=== PATIENT | female | born 1960 | race Caucasian/White ===

== ENCOUNTER → 2016-09-18 | Outpatient (REF) | payer BC ==
[2016-09-18 19:51] LABS: ALBUMIN 3.6 GM/DL (3.2-5.2); ALBUMIN/GLOBULIN RATIO 1.09 (1.00-1.93); ALKALINE PHOSPHATASE 101 U/L (45-117); ALT/SGPT 26 U/L (12-78); ANION GAP 8 MEQ/L (8-16); AST/SGOT 21 U/L (15-37); BILIRUBIN,TOTAL 0.3 MG/DL (0.2-1.0); BLOOD UREA NITROGEN 20 MG/DL (7-18); CARBON DIOXIDE LEVEL 26 MEQ/L (21-32); CHLORIDE LEVEL 107 MEQ/L (98-107); CREATININE FOR GFR 0.66 MG/DL (0.55-1.02); FREE T4 1.16 NG/DL (0.76-1.46); GLOMERULAR FILTRATION RATE > 60.0 (>51); GLUCOSE, FASTING 78 MG/DL (70-105); POTASSIUM SERUM 4.4 MEQ/L (3.5-5.1); SODIUM LEVEL 141 MEQ/L (136-145); TOTAL PROTEIN 6.9 GM/DL (6.4-8.2)
[2016-09-18 20:01] LABS: PROGESTERONE < 0.2 NG/ML
[2016-09-18 20:03] LABS: ESTRADIOL < 19.0 PG/ML; FOLLICLE STIMULATING HORMONE 70.9 mIU/mL
[2016-09-21 14:14] LABS: ESTRONE SERUM 35 pg/mL (.); SEX HORMONE BINDING GLOBULIN 32.3 nmol/L (17.3-125.0)
== END ==
LOC: M LAB REF 17:03
PROVIDERS: ATTEND Obstetrics & Gynecology
DX: N95.9 Unspecified menopausal and perimenopausal disorder (principal)

== ENCOUNTER → 2016-10-31 | Outpatient (REF) | payer BC ==
[2016-10-31 16:00] LABS: ESTRADIOL 92.4 PG/ML; LUTEINIZING HORMONE 26.3 mIU/mL; PROGESTERONE < 0.2 NG/ML
== END ==
LOC: M LAB REF 10:29
PROVIDERS: ATTEND Obstetrics & Gynecology
DX: N95.9 Unspecified menopausal and perimenopausal disorder (principal); E34.9 Endocrine disorder, unspecified; R68.82 Decreased libido

== ENCOUNTER → 2016-11-10 | Outpatient (CLI) | payer BC ==
[2016-11-10 20:15] LABS: BLOOD UREA NITROGEN 14 MG/DL (7-18); CREATININE FOR GFR 0.68 MG/DL (0.55-1.02); GLOMERULAR FILTRATION RATE > 60.0 (>51)
== END ==
LOC: M WUC 15:33
PROVIDERS: ATTEND Ophthalmology
DX: Z01.89 Encounter for other specified special examinations (principal)

== ENCOUNTER → 2017-05-18 | Outpatient (CLI) | payer BC ==
[2017-05-18 17:50] LABS: THYROID STIMULATING HORMONE 0.715 uIU/ML (0.358-3.740)
[2017-05-18 17:50] LABS: FREE T4 1.13 NG/DL (0.76-1.46)
== END ==
LOC: M WUC 11:30
DX: R94.6 Abnormal results of thyroid function studies (principal)
CPT/HCPCS: 84443

== ENCOUNTER → 2017-08-29 | Outpatient (REF) | payer BC | LOC: M LAB REF 16:31 | DX: N39.0 Urinary tract infection, site not specified (principal) | CPT/HCPCS: 87086 ==

== ENCOUNTER → 2017-10-25 | Outpatient (REF) | payer BC | LOC: M LAB REF 14:38 | DX: R30.0 Dysuria (principal) | CPT/HCPCS: 87186 ==

== ENCOUNTER → 2018-01-16 | Outpatient (CLI) | payer BC ==
[2018-01-16 12:44] LABS: BASO # 0.1 10^3/uL (0.0-0.2); BASO % 1.2 % (0.0-1.0); EOS # 0.3 10^3/uL (0.0-0.50); EOS % 3.1 % (0.0-3.0); HEMATOCRIT 43.6 % (36.0-47.0); HEMOGLOBIN 14.1 g/dl (12.0-15.5); IMMATURE GRANULOCYTE % 0.6 % (0-3.0); LYMPH # 2.6 10^3/uL (1.5-4.5); LYMPH % 30.6 % (24.0-44.0); MEAN CORPUSCULAR HEMOGLOBIN 30.2 pg (27.0-33.0); MEAN CORPUSCULAR HGB CONC 32.3 g/dl (32.0-36.5); MEAN CORPUSCULAR VOLUME 93.4 fl (80.0-96.0); MONO # 0.6 10^3/uL (0.0-0.8); MONO % 7.3 % (0.0-5.0); NEUTROPHILS # 4.8 10^3/uL (1.8-7.7); NEUTROPHILS % 57.2 % (36.0-66.0); PLATELET COUNT, AUTOMATED 282 10^3/uL (150-450); RED BLOOD COUNT 4.67 10^6/uL (4.00-5.40); RED CELL DISTRIBUTION WIDTH 13.1 % (11.5-14.5); WHITE BLOOD COUNT 8.3 10^3/uL (4.0-10.0)
[2018-01-16 13:38] LABS: ALBUMIN 3.4 GM/DL (3.2-5.2); ALBUMIN/GLOBULIN RATIO 0.97 (1.00-1.93); ALKALINE PHOSPHATASE 107 U/L (45-117); ALT/SGPT 19 U/L (12-78); ANION GAP 8 MEQ/L (8-16); AST/SGOT 16 U/L (7-37); BILIRUBIN,TOTAL 0.6 MG/DL (0.2-1.0); BLOOD UREA NITROGEN 13 MG/DL (7-18); CALCIUM LEVEL 8.8 MG/DL (8.5-10.1); CARBON DIOXIDE LEVEL 26 MEQ/L (21-32); CHLORIDE LEVEL 105 MEQ/L (98-107); CHOLESTEROL LEVEL 176 MG/DL (<200); CHOLESTEROL RISK RATIO 2.227 (<5); CREATININE FOR GFR 0.62 MG/DL (0.55-1.30); FREE T4 1.16 NG/DL (0.76-1.46); GLOMERULAR FILTRATION RATE > 60.0 (>51); GLUCOSE, FASTING 75 MG/DL (70-100); HDL CHOLESTEROL 79 MG/DL (>40); LDL CHOLESTEROL 81 MG/DL (<100); NON-HDL-C 97 MG/DL; POTASSIUM SERUM 4.4 MEQ/L (3.5-5.1); SODIUM LEVEL 139 MEQ/L (136-145); TOTAL PROTEIN 6.9 GM/DL (6.4-8.2); TRIGLYCERIDES LEVEL 79 MG/DL (<150)
== END ==
LOC: M WUC 09:15
DX: Z00.00 Encounter for general adult medical examination without abnormal findings (principal); E89.0 Postprocedural hypothyroidism
CPT/HCPCS: 84443

== ENCOUNTER → 2018-04-16 | Outpatient (CLI) | payer BC ==
[2018-04-16 13:09] LABS: FREE T4 1.03 NG/DL (0.76-1.46); THYROID STIMULATING HORMONE 2.65 uIU/ML (0.358-3.740)
== END ==
LOC: M WUC 09:52
PROVIDERS: ATTEND Family Medicine
DX: R94.6 Abnormal results of thyroid function studies (principal)

== ENCOUNTER → 2018-10-09 | Outpatient (CLI) | payer BC ==
[2018-10-09 20:49] LABS: THYROID STIMULATING HORMONE 0.923 uIU/ML (0.358-3.740); THYROXINE (T4) 8.1 UG/DL (4.5-12.0)
[2018-10-11 10:07] LABS: THRYOGLOBULIN ANTIBODIES (ATA) < 1.0 IU/mL (0.0-0.9); THYROGLOBULIN QUANTITATIVE 0.4 ng/mL (1.5-38.5)
== END ==
LOC: M WUC 15:56
PROVIDERS: ATTEND Ophthalmology
DX: E05.00 Thyrotoxicosis with diffuse goiter without thyrotoxic crisis or storm (principal)

== ENCOUNTER → 2018-11-18 | Outpatient (REF) | payer BC ==
[2018-11-18 21:28] LABS: AMORPHOUS SEDIMENT SMALL (NEGATIVE); APPEARANCE, URINE CLOUDY (CLEAR); BACTERIA, URINE AUTO 1+ (NEGATIVE); BILIRUBIN, URINE AUTO NEGATIVE (NEGATIVE); BLOOD, URINE BLOOD 2+ (NEGATIVE); COLOR, URINE YELLOW (YELLOW); GLUCOSE, URINE (UA) AUTO NEGATIVE (NEGATIVE); KETONE, URINE AUTO NEGATIVE (NEGATIVE); LEUKOCYTE ESTERASE, URINE AUTO 1+ (NEGATIVE); MUCUS, URINE SMALL (NEGATIVE); NITRITE, URINE AUTO NEGATIVE (NEGATIVE); PROTEIN, URINE AUTO NEGATIVE (NEGATIVE); RBC, URINE AUTO 9 /HPF (0-3); SPECIFIC GRAVITY URINE AUTO 1.017 (1.002-1.035); SQUAMOUS EPITHELIAL CELL UR AU 4 /HPF (0-6); UROBILINOGEN, URINE AUTO 0.2 mg/dL (0.0-2.0); WBC, URINE AUTO 72 /HPF (0-3)
== END ==
LOC: M LAB REF 13:26
PROVIDERS: ATTEND Physician Assistant Medical
DX: N39.0 Urinary tract infection, site not specified (principal)

== ENCOUNTER → 2019-02-04 | Outpatient (REF) | payer BC ==
[2019-02-04 15:48] LABS: BASO # 0.1 10^3/uL (0.0-0.2); BASO % 0.5 % (0.0-1.0); EOS # 0.1 10^3/uL (0.0-0.5); EOS % 0.7 % (0.0-3.0); HEMATOCRIT 45.5 % (36.0-47.0); HEMOGLOBIN 14.4 g/dl (12.0-15.5); LYMPH # 2.2 10^3/uL (1.5-5.0); LYMPH % 15.2 % (24.0-44.0); MEAN CORPUSCULAR HEMOGLOBIN 30.4 pg (27.0-33.0); MEAN CORPUSCULAR HGB CONC 31.6 g/dl (32.0-36.5); MONO # 0.6 10^3/uL (0.0-0.8); MONO % 3.9 % (0.0-5.0); NEUTROPHILS # 11.6 10^3/uL (1.5-8.5); NEUTROPHILS % 78.8 % (36.0-66.0); PLATELET COUNT, AUTOMATED 333 10^3/uL (150-450); RED BLOOD COUNT 4.74 10^6/uL (4.00-5.40); WHITE BLOOD COUNT 14.8 10^3/uL (4.0-10.0)
[2019-02-04 16:02] LABS: ALBUMIN 3.5 GM/DL (3.2-5.2); ALT/SGPT 23 U/L (12-78); BILIRUBIN,TOTAL 0.4 MG/DL (0.2-1.0); BLOOD UREA NITROGEN 12 MG/DL (7-18); CALCIUM LEVEL 9.2 MG/DL (8.5-10.1); CARBON DIOXIDE LEVEL 30 MEQ/L (21-32); CHLORIDE LEVEL 104 MEQ/L (98-107); CHOLESTEROL LEVEL 193 MG/DL (<200); CHOLESTEROL RISK RATIO 1.855 (<5); CREATININE FOR GFR 0.87 MG/DL (0.55-1.30); FREE T4 1.06 NG/DL (0.76-1.46); GLOMERULAR FILTRATION RATE > 60.0 (>51); GLUCOSE, FASTING 76 MG/DL (70-100); HDL CHOLESTEROL 104 MG/DL (>40); LDL CHOLESTEROL 61 MG/DL (<100); NON-HDL-C 89 MG/DL; POTASSIUM SERUM 3.6 MEQ/L (3.5-5.1); SODIUM LEVEL 140 MEQ/L (136-145); TOTAL PROTEIN 6.8 GM/DL (6.4-8.2); TRIGLYCERIDES LEVEL 142 MG/DL (<150)
== END ==
LOC: M LABDRAW1 11:14
PROVIDERS: ATTEND Family Medicine
DX: Z00.00 Encounter for general adult medical examination without abnormal findings (principal); E89.0 Postprocedural hypothyroidism

== ENCOUNTER → 2019-03-12 | Outpatient (REF) | payer BC | LOC: M LAB REF 12:27 | PROVIDERS: ATTEND Physician Assistant | DX: R30.0 Dysuria (principal) ==

== ENCOUNTER 2019-08-27 07:53 | Outpatient (CLI) | payer BC ==
[~2019-08-27] VITALS: Ht 160 cm; Wt 75.0 kg
[2019-08-27 08:05] VITALS: BP 160/91
[2019-08-27] MEDS ORDERED: methylPREDNISolone 250 MG in D5W 100 ML IV PRN (08:15)
[2019-08-27] MEDS ORDERED: LEVO112T2 PO (08:20)
[2019-08-27] MEDS ORDERED: PROG1CAP8 PO (08:21)
[2019-08-27] MEDS ORDERED: TEPROTUMUMAB TRBW IV ONE (08:30)
[2019-08-27] MEDS ORDERED: NS IV ONE (08:30)
[2019-08-27 09:30] VITALS: BP 128/77
[2019-08-27 10:00] VITALS: BP 129/74
[2019-08-27 11:00] VITALS: BP 131/73
[2019-08-27 11:25] VITALS: BP 144/82
[2019-08-27 12:00] VITALS: BP 139/83
== END 2019-08-27 12:00 | disposition home or self-care (01) ==
LOC: M INFU 07:53
PROVIDERS: ATTEND Ophthalmology
DX: E05.00 Thyrotoxicosis with diffuse goiter without thyrotoxic crisis or storm (principal); Z88.8 Allergy status to other drugs, medicaments and biological substances

== ENCOUNTER 2019-09-17 07:48 | Outpatient (CLI) | payer BC ==
[~2019-09-17] VITALS: Ht 160 cm; Wt 74.5 kg
[~2019-09-17 07:48] MED LIST: LEVO112T2 PO; PROG1CAP8 PO
[2019-09-17 08:00] VITALS: BP 142/84
[2019-09-17] MEDS ORDERED: TEPROTUMUMAB TRBW IV ONE (08:15)
[2019-09-17] MEDS ORDERED: NS IV ONE (08:15)
[2019-09-17 10:16] VITALS: BP 140/80
== END 2019-09-17 10:15 | disposition home or self-care (01) ==
LOC: M INFU 07:48
PROVIDERS: ATTEND Ophthalmology
DX: E05.00 Thyrotoxicosis with diffuse goiter without thyrotoxic crisis or storm (principal)

== ENCOUNTER → 2019-10-06 | Outpatient (REF) | payer BC | LOC: M LAB REF 15:35 | PROVIDERS: ATTEND Physician Assistant Medical | DX: N39.0 Urinary tract infection, site not specified (principal) ==

== ENCOUNTER 2019-10-08 08:30 | Outpatient (CLI) | payer BC | END 2019-10-08 11:10 | disposition home or self-care (01) | LOC: M INFU 08:30 | PROVIDERS: ATTEND Ophthalmology | DX: E05.00 Thyrotoxicosis with diffuse goiter without thyrotoxic crisis or storm (principal) ==

== ENCOUNTER 2019-10-29 07:52 | Outpatient (CLI) | payer BC ==
[~2019-10-29] VITALS: Ht 160 cm; Wt 70.0 kg
[2019-10-29] MEDS ORDERED: NS IV ONE (08:00)
[2019-10-29] MEDS ORDERED: methylPREDNISolone 250 MG in D5W 100 ML IV PRN (08:00)
[2019-10-29] MEDS ORDERED: TEPROTUMUMAB TRBW IV ONE (08:00)
[2019-10-29 08:06] VITALS: BP 144/85
[2019-10-29 09:59] VITALS: BP 168/82
== END 2019-10-29 10:00 | disposition home or self-care (01) ==
LOC: M INFU 07:52
PROVIDERS: ATTEND Ophthalmology
DX: E05.00 Thyrotoxicosis with diffuse goiter without thyrotoxic crisis or storm (principal)

== ENCOUNTER 2019-11-19 08:19 | Outpatient (CLI) | payer BC ==
[~2019-11-19] VITALS: Ht 160 cm; Wt 70.0 kg
[~2019-11-19 08:19] MED LIST changes: +methylPREDNISolone 250 MG in D5W 50 ML IV PRN
[2019-11-19 08:23] VITALS: BP 152/84
[2019-11-19] MEDS ORDERED: NS IV ONE (08:30)
[2019-11-19] MEDS ORDERED: TEPROTUMUMAB TRBW IV ONE (08:30)
[2019-11-19 10:20] VITALS: BP 160/72
== END 2019-11-19 10:30 | disposition home or self-care (01) ==
LOC: M INFU 08:19
PROVIDERS: ATTEND Ophthalmology
DX: E05.00 Thyrotoxicosis with diffuse goiter without thyrotoxic crisis or storm (principal); Z88.8 Allergy status to other drugs, medicaments and biological substances

== ENCOUNTER 2019-12-10 07:58 | Outpatient (CLI) | payer BC ==
[~2019-12-10] VITALS: Ht 160 cm; Wt 70.0 kg
[2019-12-10 08:00] VITALS: BP 152/78
[2019-12-10] MEDS ORDERED: TEPROTUMUMAB TRBW IV ONE ×2 (08:00→08:30)
[2019-12-10] MEDS ORDERED: NS IV ONE ×2 (08:00→08:30)
[2019-12-10 08:24] VITALS: BP 152/78
[2019-12-10 09:55] VITALS: BP 170/83
[2019-12-10 09:56] VITALS: BP 170/83
== END 2019-12-10 10:00 | disposition home or self-care (01) ==
LOC: M INFU 07:58
PROVIDERS: ATTEND Ophthalmology
DX: E05.00 Thyrotoxicosis with diffuse goiter without thyrotoxic crisis or storm (principal)

== ENCOUNTER → 2019-12-23 | Outpatient (REF) | payer BC, OTHER ==
[~2019-12-23] MED LIST changes: -methylPREDNISolone 250 MG in D5W 50 ML IV PRN
== END ==
LOC: M LAB REF 11:37
PROVIDERS: ATTEND Radiology Diagnostic Radiology
DX: R92.1 Mammographic calcification found on diagnostic imaging of breast (principal)

== ENCOUNTER 2019-12-31 07:49 | Outpatient (CLI) | payer BC ==
[~2019-12-31] VITALS: Ht 160 cm; Wt 70.0 kg
[2019-12-31 07:57] VITALS: BP 144/70
[2019-12-31] MEDS ORDERED: TEPROTUMUMAB TRBW IV ONE (09:00)
[2019-12-31] MEDS ORDERED: NS IV ONE (09:00)
[2019-12-31] MEDS ORDERED: methylPREDNISolone 125MG 2ML VIAL IV PRN (09:00)
[2019-12-31] MEDS ORDERED: methylPREDNISolone 125MG 2ML VIAL IV ONE (09:00)
[2019-12-31 10:57] VITALS: BP 144/79
== END 2019-12-31 11:00 | disposition home or self-care (01) ==
LOC: M INFU 07:49
PROVIDERS: ATTEND Ophthalmology
DX: E05.00 Thyrotoxicosis with diffuse goiter without thyrotoxic crisis or storm (principal)

== ENCOUNTER 2020-01-21 07:48 | Outpatient (CLI) | payer BC ==
[~2020-01-21] VITALS: Ht 157.5 cm; Wt 70.0 kg
[2020-01-21 07:59] VITALS: BP 145/79
[2020-01-21] MEDS ORDERED: NS IV ONE (08:00)
[2020-01-21] MEDS ORDERED: TEPROTUMUMAB TRBW IV ONE (08:00)
[2020-01-21 08:08] VITALS: BP 145/79
[2020-01-21] MEDS ORDERED: methylPREDNISolone 250 MG in D5W 100 ML IV PRN (08:15)
[2020-01-21 09:46] VITALS: BP 139/76
== END 2020-01-21 09:40 | disposition home or self-care (01) ==
LOC: M INFU 07:48
PROVIDERS: ATTEND Ophthalmology
DX: E05.00 Thyrotoxicosis with diffuse goiter without thyrotoxic crisis or storm (principal); Z88.8 Allergy status to other drugs, medicaments and biological substances

== ENCOUNTER → 2020-03-02 | Outpatient (CLI) | payer BC ==
[2020-03-02 16:27] LABS: BASO # 0.1 10^3/uL (0.0-0.2); BASO % 0.8 % (0.0-1.0); EOS # 0.2 10^3/uL (0.0-0.5); EOS % 1.7 % (0.0-3.0); HEMATOCRIT 43.2 % (36.0-47.0); HEMOGLOBIN 14.2 g/dl (12.0-15.5); LYMPH # 2.6 10^3/uL (1.5-5.0); LYMPH % 30.3 % (24.0-44.0); MEAN CORPUSCULAR HEMOGLOBIN 30.7 pg (27.0-33.0); MEAN CORPUSCULAR HGB CONC 32.9 g/dl (32.0-36.5); MEAN CORPUSCULAR VOLUME 93.3 fl (80.0-96.0); MONO # 0.6 10^3/uL (0.0-0.8); MONO % 7.4 % (0.0-5.0); NEUTROPHILS # 5.2 10^3/uL (1.5-8.5); NEUTROPHILS % 59.3 % (36.0-66.0); PLATELET COUNT, AUTOMATED 275 10^3/uL (150-450); RED BLOOD COUNT 4.63 10^6/uL (4.00-5.40); WHITE BLOOD COUNT 8.7 10^3/uL (4.0-10.0)
[2020-03-02 16:33] LABS: ALBUMIN 3.5 GM/DL (3.2-5.2); ALT/SGPT 24 U/L (12-78); BILIRUBIN,TOTAL 0.3 MG/DL (0.2-1.0); BLOOD UREA NITROGEN 10 MG/DL (7-18); CALCIUM LEVEL 9.1 MG/DL (8.5-10.1); CARBON DIOXIDE LEVEL 26 MEQ/L (21-32); CHLORIDE LEVEL 107 MEQ/L (98-107); CHOLESTEROL LEVEL 144 MG/DL (<200); CREATININE FOR GFR 0.62 MG/DL (0.55-1.30); FREE T4 1.34 NG/DL (0.76-1.46); GLOMERULAR FILTRATION RATE > 60.0 (>51); GLUCOSE, FASTING 60 MG/DL (70-100); HDL CHOLESTEROL 61 MG/DL (>40); LDL CHOLESTEROL 54 MG/DL (<100); NON-HDL-C 83 MG/DL; POTASSIUM SERUM 4.2 MEQ/L (3.5-5.1); SODIUM LEVEL 139 MEQ/L (136-145); THYROID STIMULATING HORMONE 0.012 uIU/ML (0.358-3.740); TOTAL PROTEIN 7.1 GM/DL (6.4-8.2); TRIGLYCERIDES LEVEL 146 MG/DL (<150)
== END ==
LOC: M WUC 11:36
PROVIDERS: ATTEND Family Medicine
DX: E89.0 Postprocedural hypothyroidism (principal)

== ENCOUNTER → 2020-05-05 | Outpatient (CLI) | payer BC ==
[2020-05-05 17:06] LABS: FREE T4 1.39 NG/DL (0.76-1.46); THYROID STIMULATING HORMONE 0.074 uIU/ML (0.358-3.740)
== END ==
LOC: M WUC 10:34
PROVIDERS: ATTEND Family Medicine
DX: E89.0 Postprocedural hypothyroidism (principal)

== ENCOUNTER → 2020-06-16 | Outpatient (CLI) | payer BC ==
--- NOTE | 2020-06-17 02:56 | REP ---
INDICATION: SHOULDER PAIN. COMPARISON: None. TECHNIQUE: Internal rotation, external rotation, axillary and Y-view of the left shoulder FINDINGS: Mild cortical irregularity and very subtle early spurring at the acromioclavicular joint. Glenohumeral joint appears intact and essentially normal. Surrounding soft tissues are unremarkable. Subacromial space is normal. No evidence for acute or healed injury. IMPRESSION: Minimal degenerative changes at the acromioclavicular joint. <Electronically signed by Elvis Ferrera > 06/17/20 0253
== END ==
LOC: M SOG 15:02
PROVIDERS: ATTEND Orthopaedic Surgery Sports Medicine
DX: M75.42 Impingement syndrome of left shoulder (principal); M19.012 Primary osteoarthritis, left shoulder

== ENCOUNTER 2020-08-03 13:45 | Outpatient (RCR) | payer OTHER | END 2020-08-08 | LOC: M PT 13:45 | PROVIDERS: ATTEND Orthopaedic Surgery Sports Medicine | DX: M75.42 Impingement syndrome of left shoulder (principal) ==

== ENCOUNTER 2020-09-01 07:42 | Outpatient (RCR) | payer OTHER | END 2020-09-07 | LOC: M PT 07:42 | PROVIDERS: ATTEND Orthopaedic Surgery Sports Medicine | DX: M75.42 Impingement syndrome of left shoulder (principal) ==

== ENCOUNTER 2020-09-28 13:38 | Outpatient (RCR) | payer OTHER | END 2020-10-08 | LOC: M PT 13:38 | PROVIDERS: ATTEND Orthopaedic Surgery Sports Medicine | DX: M75.42 Impingement syndrome of left shoulder (principal) ==

== ENCOUNTER → 2020-12-21 | Outpatient (CLI) | payer BC ==
--- NOTE | 2020-12-21 12:01 | REP ---
INDICATION: ENC SCREEN MAMMO FOR MALIGNANT NEOPLASM OF BREAST. COMPARISON: 11/20/2019 as well as other prior exams. TECHNIQUE: MLO and CC views bilateral breasts with tomosynthesis. FINDINGS: Moderate heterogeneous fibroglandular tissue is present bilaterally. There is a new lobulated nodule in the 12 o'clock region of the right breast posteriorly measuring approximately 15 x 9 mm. There is a stable nodule more laterally in the right breast. Parenchymal pattern is otherwise unchanged. There is no architectural distortion. No suspicious clusters of microcalcifications are seen bilaterally. The [facility] volumetric breast density pattern is C. IMPRESSION: BIRADS/ACR category 0, incomplete. New lobulated nodule 12 o'clock region right breast measuring approximately 15 x 9 mm. Recommend spot compression views and ultrasound to further evaluate. This patient's Tyrer-Cuzick lifetime breast cancer risk assessment score is 12.0%. This mammogram was interpreted with the aid of an FDA-approved computer-aided detection system. The patient states she had a clinical breast exam in October 16, 2020. The patient letter being requested is M0. RECOMMENDATION: Recommend spot compression views and ultrasound right breast. <Electronically signed by Sanjeev Mccrary > 12/21/20 [id number]
== END ==
LOC: M WHC 09:44
PROVIDERS: ATTEND Obstetrics & Gynecology
DX: Z12.31 Encounter for screening mammogram for malignant neoplasm of breast (principal); R92.2 Inconclusive mammogram

== ENCOUNTER → 2021-01-18 | Outpatient (CLI) | payer BC ==
[2021-01-18 17:10] LABS: ESTRADIOL 68.9 PG/ML; LUTEINIZING HORMONE 11.9 mIU/mL; PROGESTERONE 49.15 NG/ML
[2021-01-20 18:10] LABS: TESTOSTERONE FREE (DIRECT) 1.7 pg/mL (0.0-4.2)
== END ==
LOC: M WUC 13:51
PROVIDERS: ATTEND Obstetrics & Gynecology
DX: E34.9 Endocrine disorder, unspecified (principal); F52.0 Hypoactive sexual desire disorder; R53.83 Other fatigue

== ENCOUNTER → 2021-02-01 | Outpatient (CLI) | payer BC ==
--- NOTE | 2021-02-01 09:05 | REP ---
INDICATION: RIGHT BREAST ADD VIEWS. COMPARISON: 12/21/2020, 11/20/2019, 11/06/2018, 09/18/2017. TECHNIQUE: Multiple additional images of the right breast are performed in various projections, including tomosynthesis. FINDINGS: The previously noted nodule in the 12 o'clock region of the right breast has resolved. This is consistent with resolution of a benign cyst. The parenchymal pattern is unchanged when compared to other prior exams. IMPRESSION: BIRADS/ACR category 1, negative. The previously noted nodule at 12 o'clock right breast has resolved, consistent with resolution of a benign cyst. This mammogram was interpreted with the aid of an FDA-approved computer-aided detection system. The patient letter being requested is M 1. RECOMMENDATION: Repeat screening mammography recommended 1 year (for women over 40). <Electronically signed by Sanjeev Mccrary > 02/01/21 0902
== END ==
LOC: M WHC 07:56
PROVIDERS: ATTEND Obstetrics & Gynecology
DX: R92.8 Other abnormal and inconclusive findings on diagnostic imaging of breast (principal)
CPT/HCPCS: 77065; G0279

== ENCOUNTER → 2021-03-14 | Outpatient (CLI) | payer BC ==
[2021-03-14 10:28] LABS: BASO # 0.2 10^3/uL (0.0-0.2); BASO % 1.3 % (0.0-1.0); EOS # 0.3 10^3/uL (0.0-0.5); EOS % 2.2 % (0.0-3.0); HEMATOCRIT 45.2 % (36.0-47.0); HEMOGLOBIN 14.2 g/dl (12.0-15.5); LYMPH # 3.2 10^3/uL (1.5-5.0); LYMPH % 28.6 % (24.0-44.0); MEAN CORPUSCULAR HEMOGLOBIN 29.6 pg (27.0-33.0); MEAN CORPUSCULAR HGB CONC 31.4 g/dl (32.0-36.5); MEAN CORPUSCULAR VOLUME 94.4 fl (80.0-96.0); MONO # 0.9 10^3/uL (0.0-0.8); NEUTROPHILS # 6.7 10^3/uL (1.5-8.5); NEUTROPHILS % 59.3 % (36.0-66.0); PLATELET COUNT, AUTOMATED 327 10^3/uL (150-450); RED BLOOD COUNT 4.79 10^6/uL (4.00-5.40); WHITE BLOOD COUNT 11.2 10^3/uL (4.0-10.0)
[2021-03-14 11:08] LABS: ALBUMIN 3.4 GM/DL (3.2-5.2); ALT/SGPT 22 U/L (12-78); BILIRUBIN,TOTAL 0.4 MG/DL (0.2-1.0); BLOOD UREA NITROGEN 14 MG/DL (7-18); CALCIUM LEVEL 8.9 MG/DL (8.5-10.1); CARBON DIOXIDE LEVEL 29 MEQ/L (21-32); CHLORIDE LEVEL 105 MEQ/L (98-107); CHOLESTEROL LEVEL 166 MG/DL (<200); CHOLESTEROL RISK RATIO 1.886 (<5); CREATININE FOR GFR 0.71 MG/DL (0.55-1.30); FREE T4 1.12 NG/DL (0.76-1.46); GLOMERULAR FILTRATION RATE > 60.0 (>51); GLUCOSE, FASTING 75 MG/DL (70-100); HDL CHOLESTEROL 88 MG/DL (>40); LDL CHOLESTEROL 62 MG/DL (<100); NON-HDL-C 78 MG/DL; POTASSIUM SERUM 4.1 MEQ/L (3.5-5.1); SODIUM LEVEL 139 MEQ/L (136-145); TOTAL PROTEIN 6.9 GM/DL (6.4-8.2); TRIGLYCERIDES LEVEL 82 MG/DL (<150)
== END ==
LOC: M WUC 08:16
PROVIDERS: ATTEND Family Medicine
DX: Z00.00 Encounter for general adult medical examination without abnormal findings (principal); E89.0 Postprocedural hypothyroidism

== ENCOUNTER → 2021-07-06 | Outpatient (CLI) | payer BC | LOC: M SOG 11:26 | PROVIDERS: ATTEND Orthopaedic Surgery Adult Reconstructive Orthopaedic Surgery | DX: M25.551 Pain in right hip (principal); M25.552 Pain in left hip; M16.0 Bilateral primary osteoarthritis of hip ==

== ENCOUNTER → 2021-07-24 | Outpatient (CLI) | payer BC ==
[~2021-07-24] MED LIST changes: +BUPIVACAINE HCL 0.5% 30ML VIAL As Ordered ONE; +ISOVUE-300 61% 50ML VIAL As Ordered ONE; +LIDOCAINE 1% MDV 20ML VIAL As Ordered ONE; +methylPREDNISolone 80MG/ML SUSP 1ML VIAL (J1040) As Ordered ONE
== END ==
LOC: M RADPRO 10:11
PROVIDERS: ATTEND Orthopaedic Surgery Adult Reconstructive Orthopaedic Surgery
DX: M25.852 Other specified joint disorders, left hip (principal); M25.851 Other specified joint disorders, right hip
CPT/HCPCS: 20610; 77002; J1040; Q9967

== ENCOUNTER → 2021-11-15 | Outpatient (CLI) | payer BC ==
[~2021-11-15] MED LIST changes: -BUPIVACAINE HCL 0.5% 30ML VIAL As Ordered ONE; +PROHANCE 279.3MG/ML 5ML VIAL As Ordered ONE; -methylPREDNISolone 80MG/ML SUSP 1ML VIAL (J1040) As Ordered ONE
== END ==
LOC: M RADPRO 06:22
PROVIDERS: ATTEND Orthopaedic Surgery Adult Reconstructive Orthopaedic Surgery
DX: M25.851 Other specified joint disorders, right hip (principal)
CPT/HCPCS: 27093; 73723; 77002; A9576; Q9967

== ENCOUNTER → 2021-11-17 | Outpatient (CLI) | payer BC ==
[~2021-11-17] MED LIST changes: -ISOVUE-300 61% 50ML VIAL As Ordered ONE; +ISOVUE-300 61% 5ML SYRINGE As Ordered ONE
== END ==
LOC: M RADPRO 06:20
PROVIDERS: ATTEND Orthopaedic Surgery Adult Reconstructive Orthopaedic Surgery
DX: M16.0 Bilateral primary osteoarthritis of hip (principal)
CPT/HCPCS: 27093; 73723; 77002; A9576; Q9967

== ENCOUNTER → 2021-12-15 | Outpatient (CLI) | payer BC ==
[~2021-12-15] MED LIST changes: +BUPIVACAINE HCL 0.5% 30ML VIAL As Ordered ONE; +ISOVUE-300 61% 50ML VIAL As Ordered ONE; -ISOVUE-300 61% 5ML SYRINGE As Ordered ONE; -PROHANCE 279.3MG/ML 5ML VIAL As Ordered ONE; +methylPREDNISolone 80MG/ML SUSP 1ML VIAL (J1040) As Ordered ONE
== END ==
LOC: M RAD 08:56 → M RADPRO 08:56
PROVIDERS: ATTEND Orthopaedic Surgery Adult Reconstructive Orthopaedic Surgery
DX: M16.2 Bilateral osteoarthritis resulting from hip dysplasia (principal)
CPT/HCPCS: 20610; 76000; J1040; Q9967

== ENCOUNTER → 2021-12-22 | Outpatient (CLI) | payer BC ==
[~2021-12-22] MED LIST changes: -BUPIVACAINE HCL 0.5% 30ML VIAL As Ordered ONE; -ISOVUE-300 61% 50ML VIAL As Ordered ONE; -LIDOCAINE 1% MDV 20ML VIAL As Ordered ONE; -methylPREDNISolone 80MG/ML SUSP 1ML VIAL (J1040) As Ordered ONE
== END ==
LOC: M WHC 09:03
PROVIDERS: ATTEND Obstetrics & Gynecology
DX: Z12.31 Encounter for screening mammogram for malignant neoplasm of breast (principal); Z13.820 Encounter for screening for osteoporosis; M85.88 Other specified disorders of bone density and structure, other site

== ENCOUNTER → 2022-01-03 | Outpatient (CLI) | payer BC ==
[2022-01-03 16:24] LABS: BASO # 0.1 10^3/uL (0.0-0.2); BASO % 0.9 % (0.0-1.0); EOS # 0.3 10^3/uL (0.0-0.5); EOS % 2.7 % (0.0-3.0); HEMATOCRIT 42.8 % (36.0-47.0); HEMOGLOBIN 13.7 g/dl (12.0-15.5); LYMPH # 2.8 10^3/uL (1.5-5.0); LYMPH % 28.4 % (24.0-44.0); MEAN CORPUSCULAR HEMOGLOBIN 29.5 pg (27.0-33.0); MONO # 0.7 10^3/uL (0.0-0.8); MONO % 7.3 % (2.0-8.0); NEUTROPHILS # 5.9 10^3/uL (1.5-8.5); NEUTROPHILS % 60.3 % (36.0-66.0); PLATELET COUNT, AUTOMATED 290 10^3/uL (150-450); RED BLOOD COUNT 4.65 10^6/uL (4.00-5.40); WHITE BLOOD COUNT 9.9 10^3/uL (4.0-10.0)
[2022-01-03 17:41] LABS: ALBUMIN 3.5 GM/DL (3.2-5.2); ALT/SGPT 26 U/L (12-78); BILIRUBIN,TOTAL 0.2 MG/DL (0.2-1.0); BLOOD UREA NITROGEN 23 MG/DL (7-18); CALCIUM LEVEL 8.8 MG/DL (8.5-10.1); CARBON DIOXIDE LEVEL 26 MEQ/L (21-32); CHLORIDE LEVEL 108 MEQ/L (98-107); CREATININE FOR GFR 0.64 MG/DL (0.55-1.30); FREE T4 1.25 NG/DL (0.76-1.46); GLOMERULAR FILTRATION RATE > 60.0 (>51); GLUCOSE, FASTING 73 MG/DL (70-100); POTASSIUM SERUM 4.2 MEQ/L (3.5-5.1); SODIUM LEVEL 140 MEQ/L (136-145); THYROID STIMULATING HORMONE 0.502 uIU/ML (0.358-3.740); TOTAL PROTEIN 6.7 GM/DL (6.4-8.2)
== END ==
LOC: M PLALAB 13:54
PROVIDERS: ATTEND Nurse Practitioner Family
DX: Z01.818 Encounter for other preprocedural examination (principal); E89.0 Postprocedural hypothyroidism

== ENCOUNTER 2022-02-13 11:57 | Emergency (ER) | payer OTHER, BC ==
[~2022-02-13] VITALS: Ht 157.5 cm; Wt 74.0 kg
[2022-02-13] MEDS ORDERED: LIDOCAINE 1% MDV 20ML VIAL INFIL ONE (16:45)
[2022-02-13] MEDS ORDERED: BOOSTRIX/ADACEL VACCINE (DIPHTH/PERTUSS/ACELL/TETANUS) 0.5ML SYR IM ONE (16:45)
[2022-02-13] MEDS ORDERED: CEPH500C PO (17:07)
[2022-02-13] MEDS ORDERED: NEOSPORIN OINT 0.9 GM PKT TOP ONE (17:10)
[2022-02-13 17:21] VITALS: BP 140/90
== END 2022-02-13 17:27 | disposition home or self-care (01) ==
LOC: M ED 11:57
DX: S61.412A Laceration without foreign body of left hand, initial encounter (principal); M79.645 Pain in left finger(s); W26.0XXA Contact with knife, initial encounter; Y93.89 Activity, other specified; Y99.0 Civilian activity done for income or pay; E03.9 Hypothyroidism, unspecified; Z79.890 Hormone replacement therapy; Z88.8 Allergy status to other drugs, medicaments and biological substances

== ENCOUNTER → 2022-02-21 | Outpatient (CLI) | payer OTHER, BC ==
[~2022-02-21] MED LIST changes: +CEPH500C PO
== END ==
LOC: M SOG 09:16
PROVIDERS: ATTEND Orthopaedic Surgery Adult Reconstructive Orthopaedic Surgery
DX: M16.0 Bilateral primary osteoarthritis of hip (principal)

== ENCOUNTER → 2022-03-26 | Outpatient (CLI) | payer BC ==
[~2022-03-26] MED LIST changes: +BUPIVACAINE HCL 0.5% 10ML VIAL ONE; +ISOVUE-300 61% 100ML VIAL ONE; +LIDOCAINE 1% MDV 20ML VIAL ONE; +methylPREDNISolone 80MG/ML SUSP 1ML VIAL ONE
== END ==
LOC: M PLAIMG 12:27
PROVIDERS: ATTEND Orthopaedic Surgery Adult Reconstructive Orthopaedic Surgery
DX: M16.2 Bilateral osteoarthritis resulting from hip dysplasia (principal)

== ENCOUNTER → 2022-05-23 | Outpatient (CLI) | payer BC ==
[~2022-05-23] MED LIST changes: -BUPIVACAINE HCL 0.5% 10ML VIAL ONE; -ISOVUE-300 61% 100ML VIAL ONE; -LIDOCAINE 1% MDV 20ML VIAL ONE; -methylPREDNISolone 80MG/ML SUSP 1ML VIAL ONE
== END ==
LOC: M SOG 09:12
PROVIDERS: ATTEND Orthopaedic Surgery Adult Reconstructive Orthopaedic Surgery
DX: M25.851 Other specified joint disorders, right hip (principal); M16.0 Bilateral primary osteoarthritis of hip

== ENCOUNTER → 2022-06-07 | Outpatient (REF) | LOC: M EMP 12:51 | PROVIDERS: ATTEND Family Medicine | DX: Z11.52 Encounter for screening for COVID-19 (principal) ==

== ENCOUNTER → 2022-06-25 | Outpatient (CLI) | payer BC ==
[~2022-06-25] MED LIST changes: +BUPIVACAINE HCL 0.5% 30ML VIAL As Ordered ONE; +ISOVUE-300 61% 100ML VIAL As Ordered ONE; +methylPREDNISolone 80MG/ML SUSP 1ML VIAL As Ordered ONE
== END ==
LOC: M RAD 14:51
PROVIDERS: ATTEND Orthopaedic Surgery Adult Reconstructive Orthopaedic Surgery
DX: M25.851 Other specified joint disorders, right hip (principal); M25.852 Other specified joint disorders, left hip
CPT/HCPCS: 20610; 77002; J1040; Q9967; S0020

== ENCOUNTER → 2022-08-15 | Outpatient (CLI) | payer BC ==
[~2022-08-15] MED LIST changes: -BUPIVACAINE HCL 0.5% 30ML VIAL As Ordered ONE; -ISOVUE-300 61% 100ML VIAL As Ordered ONE; -methylPREDNISolone 80MG/ML SUSP 1ML VIAL As Ordered ONE
== END ==
LOC: M SOG 08:02
PROVIDERS: ATTEND Orthopaedic Surgery
DX: M25.851 Other specified joint disorders, right hip (principal); M25.852 Other specified joint disorders, left hip; M16.0 Bilateral primary osteoarthritis of hip

== ENCOUNTER → 2022-11-30 | Outpatient (CLI) | payer BC | LOC: M SOG 08:38 | PROVIDERS: ATTEND Orthopaedic Surgery | DX: M16.10 Unilateral primary osteoarthritis, unspecified hip (principal) ==

== ENCOUNTER → 2023-02-22 | Outpatient (CLI) | payer BC ==
[2023-02-22 13:51] LABS: BASO # 0.1 10^3/uL (0.0-0.2); BASO % 1.1 % (0.0-1.0); EOS # 0.2 10^3/uL (0.0-0.5); EOS % 2.5 % (0.0-3.0); HEMATOCRIT 40.5 % (36.0-47.0); HEMOGLOBIN 12.9 g/dl (12.0-15.5); LYMPH # 2.5 10^3/uL (1.5-5.0); LYMPH % 33.7 % (24.0-44.0); MEAN CORPUSCULAR HEMOGLOBIN 29.4 pg (27.0-33.0); MEAN CORPUSCULAR HGB CONC 31.9 g/dl (32.0-36.5); MEAN CORPUSCULAR VOLUME 92.3 fl (80.0-96.0); MONO # 0.5 10^3/uL (0.0-0.8); MONO % 7.2 % (2.0-8.0); NEUTROPHILS # 4.1 10^3/uL (1.5-8.5); NEUTROPHILS % 55.1 % (36.0-66.0); PLATELET COUNT, AUTOMATED 278 10^3/uL (150-450); RED BLOOD COUNT 4.39 10^6/uL (4.00-5.40); WHITE BLOOD COUNT 7.5 10^3/uL (4.0-10.0)
[2023-02-22 14:22] LABS: ALBUMIN 3.4 G/DL (3.2-5.2); ALKALINE PHOSPHATASE 113 U/L (46-116); ALT/SGPT 21 U/L (7.0-40); AST/SGOT 13 U/L (<34); BILIRUBIN,TOTAL 0.4 MG/DL (0.3-1.2); BLOOD UREA NITROGEN 16 MG/DL (9-23); CALCIUM LEVEL 9.3 MG/DL (8.3-10.6); CARBON DIOXIDE LEVEL 29 MMOL/L (20-31); CHLORIDE LEVEL 109 MMOL/L (98-107); CREATININE FOR GFR 0.57 MG/DL (0.55-1.30); GLOMERULAR FILTRATION RATE > 60.0 (>45); GLUCOSE, FASTING 75 MG/DL (74-106); POTASSIUM SERUM 4.1 MMOL/L (3.5-5.1); SODIUM LEVEL 142 MMOL/L (136-145); TOTAL PROTEIN 6.5 G/DL (5.7-8.2)
[2023-02-22 14:25] LABS: TOTAL 25(OH) VITAMIN D 27.9 NG/ML (20.0-100.0)
[2023-02-22 14:40] LABS: INR 1.04; PROTHROMBIN TIME 13.3 SECONDS (12.5-14.5)
== END ==
LOC: M PLALAB 10:08
PROVIDERS: ATTEND Orthopaedic Surgery
DX: M16.0 Bilateral primary osteoarthritis of hip (principal)

== ENCOUNTER → 2023-03-26 | Outpatient (CLI) | payer BC | LOC: M SOG 08:00 | PROVIDERS: ATTEND Orthopaedic Surgery | DX: M16.0 Bilateral primary osteoarthritis of hip (principal); M25.751 Osteophyte, right hip; M25.752 Osteophyte, left hip; M24.151 Other articular cartilage disorders, right hip; M24.152 Other articular cartilage disorders, left hip ==

== ENCOUNTER → 2023-04-05 | Outpatient (REF) | payer BC ==
[2023-04-05 18:48] LABS: THYROID STIMULATING HORMONE 1.081 uIU/ML (0.55-4.78)
[2023-04-05 18:49] LABS: FREE T4 1.31 NG/DL (0.89-1.76)
== END ==
LOC: M LABWUC 16:28
PROVIDERS: ATTEND Registered Nurse
DX: E89.0 Postprocedural hypothyroidism (principal)

== ENCOUNTER → 2023-04-10 | Outpatient (RCR) | payer BC | END | disposition home or self-care (01) | LOC: M PT 13:13 | PROVIDERS: ATTEND Orthopaedic Surgery | DX: M16.11 Unilateral primary osteoarthritis, right hip (principal) ==

== ENCOUNTER → 2023-04-15 | Outpatient (CLI) | payer BC | LOC: M RAD 15:48 | PROVIDERS: ATTEND Orthopaedic Surgery | DX: M16.11 Unilateral primary osteoarthritis, right hip (principal); K57.30 Diverticulosis of large intestine without perforation or abscess without bleeding; M76.891 Other specified enthesopathies of right lower limb, excluding foot; M76.892 Other specified enthesopathies of left lower limb, excluding foot; M85.451 Solitary bone cyst, right pelvis ==

== ENCOUNTER 2023-04-29 09:41 | Observation (INO) | payer BC ==
[~2023-04-29] VITALS: Ht 154.9 cm; Wt 71.2 kg
[~2023-04-29 09:41] MED LIST changes: +LIDOCAINE 2% 100MG/5ML SDV (FOR ANES.) As Ordered ONE; +MIDAZOLAM INJ 2MG/2ML VIAL As Ordered ONE; +ONDANSETRON 4MG 2ML VIAL As Ordered ONE; +PHENYLephrine 500MCG 5ML (100MCG/ML) SYRINGE As Ordered ONE; +ROCURONIUM BROMIDE 50MG/5ML VIAL As Ordered ONE; +TRANEXAMIC ACID 100 MG/ML 10ML VIAL IV ONE; +fentaNYL 100 MCG/2 ML INJECTION As Ordered ONE; +propofoL 200 MG/20 ML VIAL As Ordered ONE
[2023-04-29] MEDS ORDERED: MULT-40 PO (10:24)
[2023-04-29] MEDS ORDERED: ACET-897 PO (10:24)
[2023-04-29] MEDS ORDERED: HOME MED LIST COMPLETE! XX SCH (10:25)
[2023-04-29] MEDS: LR 1,000 ML IV SCH ×3 (10:31→14:25)
[2023-04-29] MEDS ORDERED: VANCOMYCIN 1000MG/20ML VIAL As Ordered ONE (11:01)
[2023-04-29] MEDS: ceFAZolin SOD 2 GM in IV 1 EA IV ONE (11:31)
[2023-04-29] MEDS: TRANEXAMIC ACID 100 MG/ML 10ML VIAL As Ordered ONE (12:10)
[2023-04-29] MEDS: ROPIVA 100MG/KETOR 15MG/EPINEPHRINE 0.3MG IN NS 50ML SYRINGE PA ONE (12:10)
[2023-04-29] MEDS ORDERED: ACETAMINOPHEN 1000MG 100ML IV BAG As Ordered ONE (12:28)
[2023-04-29] MEDS ORDERED: SUGAMMADEX SODIUM 500 MG/5 ML VIAL (BRIDION) As Ordered ONE (12:37)
[2023-04-29] MEDS ORDERED: HYDROmorphone HCL 2MG/ML 1ML VIAL As Ordered ONE (12:54)
[2023-04-29] MEDS ORDERED: SENNA 8.6 MG TAB (SENOKOT) PO PRN (13:30)
[2023-04-29] MEDS ORDERED: ONDANSETRON 4MG 2ML VIAL IV PRN (14:25)
[2023-04-29] MEDS: MORPHINE 2 MG/ML 1ML VIAL IV PRN (14:41)
[2023-04-29] MEDS: ONDANSETRON 4MG 2ML VIAL IV PRN (14:41)
[2023-04-29] MEDS: METOCLOPRAMIDE INJ 10MG/2ML VIAL IV PRN (14:41)
[2023-04-29] MEDS: fentaNYL 100 MCG/2 ML INJECTION IV PRN (14:52)
[2023-04-29] MEDS: oxyCODONE 5MG TAB PO PRN (15:21)
[2023-04-29 16:10] VITALS: BP 123/63; TEMP 97.9; O2SAT 97
[2023-04-29] MEDS: ACETAMINOPHEN TAB 650MG DOSE (2X325MG) PO SCH (18:47)
[2023-04-29] MEDS: DOCUSATE SODIUM 100MG CAPSULE PO SCH (20:03)
[2023-04-29] MEDS: NAPROXEN 250 MG TAB PO SCH (20:03)
[2023-04-29] MEDS: ceFAZolin SOD 2 GM in IV 1 EA IV SCH (20:03)
[2023-04-29] MEDS: ASPIRIN 81MG ENTERIC TABLET PO SCH (20:03)
[2023-04-29 20:46] VITALS: BP 117/61; TEMP 97.7; O2SAT 91
[2023-04-30] MEDS: oxyCODONE 5MG TAB PO PRN ×2 (00:16→04:46)
[2023-04-30 00:26] VITALS: BP 117/62; TEMP 98.4; O2SAT 94
[2023-04-30 04:28] VITALS: BP 104/48; TEMP 98.2; O2SAT 94
[2023-04-30] MEDS: LEVOTHYROXINE 112MCG TABLET (0.112MG) PO SCH (05:47)
[2023-04-30 06:11] LABS: HEMATOCRIT 31.2 % (36.0-47.0); HEMOGLOBIN 10.4 g/dl (12.0-15.5); MEAN CORPUSCULAR HEMOGLOBIN 29.6 pg (27.0-33.0); MEAN CORPUSCULAR HGB CONC 33.3 g/dl (32.0-36.5); MEAN CORPUSCULAR VOLUME 88.9 fl (80.0-96.0); PLATELET COUNT, AUTOMATED 229 10^3/uL (150-450); RED BLOOD COUNT 3.51 10^6/uL (4.00-5.40); WHITE BLOOD COUNT 12.8 10^3/uL (4.0-10.0)
[2023-04-30 06:26] LABS: ALBUMIN 2.7 G/DL (3.2-5.2); ALKALINE PHOSPHATASE 81 U/L (46-116); ALT/SGPT 16 U/L (7.0-40); AST/SGOT 20 U/L (<34); BILIRUBIN,TOTAL 0.4 MG/DL (0.3-1.2); BLOOD UREA NITROGEN 15 MG/DL (9-23); CALCIUM LEVEL 8.5 MG/DL (8.3-10.6); CARBON DIOXIDE LEVEL 27 MMOL/L (20-31); CHLORIDE LEVEL 107 MMOL/L (98-107); CREATININE FOR GFR 0.58 MG/DL (0.55-1.30); GLOMERULAR FILTRATION RATE > 60.0 (>45); GLUCOSE, FASTING 130 MG/DL (74-106); POTASSIUM SERUM 4.2 MMOL/L (3.5-5.1); SODIUM LEVEL 140 MMOL/L (136-145); TOTAL PROTEIN 5.3 G/DL (5.7-8.2)
[2023-04-30] MEDS: FERROUS SULFATE 325MG TAB PO SCH (09:53)
[2023-04-30] MEDS: ASCORBIC ACID 500 MG TAB PO SCH (09:54)
[2023-04-30] MEDS: CEFDINIR 300 MG CAP (OMNICEF) PO SCH (09:54)
[2023-04-30] MEDS ORDERED: ASPI81TAEC PO (11:07)
[2023-04-30] MEDS ORDERED: OXYC-517 PO (11:07)
[2023-04-30] MEDS ORDERED: CEFA500C2 PO (11:07)
== END 2023-04-30 12:28 | disposition home or self-care (01) ==
LOC: M SDC 09:41 → M ED INP 09:42 → M MS5PR 16:10
PROVIDERS: ADMIT Orthopaedic Surgery; ATTEND Orthopaedic Surgery
DX: M16.11 Unilateral primary osteoarthritis, right hip (principal); E05.00 Thyrotoxicosis with diffuse goiter without thyrotoxic crisis or storm; Z79.890 Hormone replacement therapy; Z88.8 Allergy status to other drugs, medicaments and biological substances
CPT/HCPCS: 27130; 36415; 72170; 80053; 80069; 85027; 87635; 88300; 96374; 96376; 97161; 97165; 97530; 97535; C1713; C1776; J0131; J0690; J1100; J1170; J2250; J2371; J2405; J2765; J3010

== ENCOUNTER → 2023-05-13 | Outpatient (CLI) | payer BC ==
[~2023-05-13] MED LIST changes: +ACET-897 PO; +ASPI81TAEC PO; +CEFA500C2 PO; -LIDOCAINE 2% 100MG/5ML SDV (FOR ANES.) As Ordered ONE; -MIDAZOLAM INJ 2MG/2ML VIAL As Ordered ONE; +MULT-40 PO; -ONDANSETRON 4MG 2ML VIAL As Ordered ONE; +OXYC-517 PO; -PHENYLephrine 500MCG 5ML (100MCG/ML) SYRINGE As Ordered ONE; -ROCURONIUM BROMIDE 50MG/5ML VIAL As Ordered ONE; -TRANEXAMIC ACID 100 MG/ML 10ML VIAL IV ONE; -fentaNYL 100 MCG/2 ML INJECTION As Ordered ONE; -propofoL 200 MG/20 ML VIAL As Ordered ONE
== END ==
LOC: M SOG 07:52
PROVIDERS: ATTEND Orthopaedic Surgery
DX: Z96.641 Presence of right artificial hip joint (principal); Z47.1 Aftercare following joint replacement surgery

== ENCOUNTER 2023-06-06 09:53 | Outpatient (RCR) | payer BC | END 2023-06-09 | LOC: M PT 09:53 | PROVIDERS: ATTEND Orthopaedic Surgery | DX: Z96.641 Presence of right artificial hip joint (principal) ==

== ENCOUNTER 2023-06-21 09:53 | Outpatient (RCR) | payer BC | END 2023-07-09 | LOC: M PT 09:53 | PROVIDERS: ATTEND Orthopaedic Surgery | DX: Z96.641 Presence of right artificial hip joint (principal) ==

== ENCOUNTER → 2023-06-26 | Outpatient (CLI) | payer BC | LOC: M SOG 09:13 | PROVIDERS: ATTEND Orthopaedic Surgery | DX: Z47.1 Aftercare following joint replacement surgery (principal) ==

== ENCOUNTER → 2023-12-26 | Outpatient (CLI) | payer BC | LOC: M SOG 07:21 | PROVIDERS: ATTEND Orthopaedic Surgery | DX: Z47.1 Aftercare following joint replacement surgery (principal); Z96.641 Presence of right artificial hip joint ==

== ENCOUNTER → 2023-12-26 | Outpatient (CLI) | payer BC | LOC: M WHC 11:23 | PROVIDERS: ATTEND Obstetrics & Gynecology | DX: Z12.31 Encounter for screening mammogram for malignant neoplasm of breast (principal); Z13.820 Encounter for screening for osteoporosis; R92.323 Mammographic fibroglandular density, bilateral breasts ==

== ENCOUNTER → 2024-03-20 | Outpatient (CLI) | payer BC ==
[2024-03-20 13:50] LABS: ALBUMIN 3.6 G/DL (3.2-5.2); ALKALINE PHOSPHATASE 115 U/L (35-104); ALT/SGPT 26 U/L (7.0-40); AST/SGOT 20 U/L (<34); BILIRUBIN,TOTAL 0.4 MG/DL (0.3-1.2); BLOOD UREA NITROGEN 12 MG/DL (9-23); CALCIUM LEVEL 9.2 MG/DL (8.3-10.6); CARBON DIOXIDE LEVEL 28 MMOL/L (20-31); CHLORIDE LEVEL 106 MMOL/L (98-107); CHOLESTEROL LEVEL 181 MG/DL (<200); CHOLESTEROL RISK RATIO 2.01 (<5); CREATININE FOR GFR 0.63 MG/DL (0.55-1.30); GLOMERULAR FILTRATION RATE > 60.0 (>45); GLUCOSE, FASTING 89 MG/DL (74-106); LDL CHOLESTEROL 77.4 MG/DL (<100); POTASSIUM SERUM 4.2 MMOL/L (3.5-5.1); SODIUM LEVEL 143 MMOL/L (136-145); TOTAL PROTEIN 7.3 G/DL (5.7-8.2); TRIGLYCERIDES LEVEL 68 MG/DL (<150)
[2024-03-20 13:52] LABS: FREE T4 1.51 NG/DL (0.89-1.76); THYROID STIMULATING HORMONE 2.338 uIU/ML (0.55-4.78)
[2024-03-20 13:54] LABS: BASO # 0.1 10^3/uL (0.0-0.2); BASO % 1.7 % (0.0-1.0); EOS # 0.2 10^3/uL (0.0-0.5); EOS % 2.8 % (0.0-3.0); HEMOGLOBIN 13.1 g/dl (12.0-15.5); LYMPH # 2.9 10^3/uL (1.5-5.0); LYMPH % 39.6 % (24.0-44.0); MEAN CORPUSCULAR HEMOGLOBIN 28.9 pg (27.0-33.0); MEAN CORPUSCULAR HGB CONC 32.8 g/dl (32.0-36.5); MEAN CORPUSCULAR VOLUME 88.3 fl (80.0-96.0); MONO # 0.6 10^3/uL (0.0-0.8); MONO % 8.4 % (2.0-8.0); NEUTROPHILS # 3.4 10^3/uL (1.5-8.5); NEUTROPHILS % 47.2 % (36.0-66.0); PLATELET COUNT, AUTOMATED 268 10^3/uL (150-450); RED BLOOD COUNT 4.53 10^6/uL (4.00-5.40); WHITE BLOOD COUNT 7.2 10^3/uL (4.0-10.0)
== END ==
LOC: M WUC 09:06
PROVIDERS: ATTEND Registered Nurse
DX: Z00.00 Encounter for general adult medical examination without abnormal findings (principal); E89.0 Postprocedural hypothyroidism

== ENCOUNTER → 2024-06-15 | Outpatient (REF) | payer BC ==
[2024-06-15 18:01] LABS: APPEARANCE, URINE CLEAR (CLEAR); BACTERIA, URINE AUTO NEGATIVE (NEGATIVE); BILIRUBIN, URINE AUTO NEGATIVE (NEGATIVE); BLOOD, URINE BLOOD NEGATIVE (NEGATIVE); COLOR, URINE YELLOW (YELLOW); GLUCOSE, URINE (UA) AUTO NEGATIVE (NEGATIVE); KETONE, URINE AUTO NEGATIVE (NEGATIVE); LEUKOCYTE ESTERASE, URINE AUTO NEGATIVE (NEGATIVE); MUCUS, URINE SMALL (NEGATIVE); NITRITE, URINE AUTO NEGATIVE (NEGATIVE); PROTEIN, URINE AUTO NEGATIVE (NEGATIVE); RBC, URINE AUTO 3 /HPF (0-3); SPECIFIC GRAVITY URINE AUTO 1.014 (1.002-1.035); SQUAMOUS EPITHELIAL CELL UR AU 0 /HPF (0-6); UROBILINOGEN, URINE AUTO 0.2 mg/dL (0.0-2.0); WBC, URINE AUTO 0 /HPF (0-3)
== END ==
LOC: M LAB REF 17:22
PROVIDERS: ATTEND Physician Assistant Medical
DX: N39.0 Urinary tract infection, site not specified (principal)

== ENCOUNTER → 2024-06-25 | Outpatient (CLI) | payer BC | LOC: M SOG 07:50 | PROVIDERS: ATTEND Orthopaedic Surgery | DX: Z96.641 Presence of right artificial hip joint (principal); Z47.1 Aftercare following joint replacement surgery ==

== ENCOUNTER → 2024-12-31 | Outpatient (CLI) | payer BC | LOC: M WHC 12:43 | PROVIDERS: ATTEND Obstetrics & Gynecology | DX: Z12.31 Encounter for screening mammogram for malignant neoplasm of breast (principal); R92.323 Mammographic fibroglandular density, bilateral breasts ==

== ENCOUNTER → 2025-01-12 | Outpatient (REF) | payer BC ==
[2025-01-12 17:13] LABS: APPEARANCE, URINE HAZY (CLEAR); BACTERIA, URINE AUTO NEGATIVE (NEGATIVE); BILIRUBIN, URINE AUTO NEGATIVE (NEGATIVE); BLOOD, URINE BLOOD 2+ (NEGATIVE); GLUCOSE, URINE (UA) AUTO NEGATIVE (NEGATIVE); KETONE, URINE AUTO TRACE mg/dL (NEGATIVE); LEUKOCYTE ESTERASE, URINE AUTO NEGATIVE (NEGATIVE); MUCUS, URINE SMALL (NEGATIVE); NITRITE, URINE AUTO NEGATIVE (NEGATIVE); PROTEIN, URINE AUTO NEGATIVE (NEGATIVE); RBC, URINE AUTO 6 /HPF (0-3); SPECIFIC GRAVITY URINE AUTO 1.018 (1.002-1.035); SQUAMOUS EPITHELIAL CELL UR AU 3 /HPF (0-6); UROBILINOGEN, URINE AUTO 0.2 mg/dL (0.0-2.0); WBC, URINE AUTO 2 /HPF (0-3)
== END ==
LOC: M LAB REF 16:49
PROVIDERS: ATTEND Physician Assistant Medical
DX: N39.0 Urinary tract infection, site not specified (principal)